=== PATIENT | female | born 1965 | race Caucasian/White ===

== ENCOUNTER 2019-06-21 09:10 | Outpatient (CLI) | payer OTHER | END 2019-06-21 09:11 | disposition home or self-care (01) | DRG 561 | LOC: CONVCARE 09:10 | PROVIDERS: ATTEND Orthopaedic Surgery | DX: S62.607D Fracture of unspecified phalanx of left little finger, subsequent encounter for fracture with routine healing (principal) | CPT/HCPCS: 73140 ==

== ENCOUNTER 2019-07-05 13:42 | Outpatient (CLI) | payer OTHER | END 2019-07-05 13:43 | disposition home or self-care (01) | LOC: CONVCARE 13:42 ==